=== PATIENT | female | born 1940 | race Caucasian/White ===

== ENCOUNTER → 2017-01-28 | Outpatient (CLI) | payer OTHER | LOC: HEART CORB 12:13 | DX: I47.2 Ventricular tachycardia (principal); I20.8 Other forms of angina pectoris; R06.02 Shortness of breath; I10 Essential (primary) hypertension; R00.2 Palpitations ==

== ENCOUNTER → 2017-02-04 | Outpatient (CLI) | payer OTHER | LOC: HEART CORB 10:01 | DX: I20.8 Other forms of angina pectoris (principal); R06.02 Shortness of breath; I47.2 Ventricular tachycardia | CPT/HCPCS: 78452; A9502; J2785 ==